=== PATIENT | female | born 1990 | race Caucasian/White ===

== ENCOUNTER 2016-04-11 12:13 | Emergency (ER) | payer OTHER ==
[2016-04-11 12:57] VITALS: BP 104/62
--- NOTE | 2016-04-11 13:23 | UC ---
Ear Complaint HPI - HPI Summary HPI Summary: Nasal congestion with steady L ear pain starting 3-4 days ago. Denies hx of ENT surgery or problems with ears as an adult -- did have AOM repeatedly as a kid, also son is getting tubes this week. - History of Current Complaint Chief Complaint: UCEar Stated Complaint: LEFT EAR PAIN Time Seen by Provider: 04/11/16 12:55 Hx Obtained From: Patient Hx Last Menstrual Period: April 2015 ?: No Onset/Duration: Gradual Onset, Lasting Days Severity Initially: Mild Severity Currently: Mild Aggravating Factors: Cold Associated Signs/Symptoms: Positive: Hearing Loss, URI Symptoms - Allergies/Home Medications Allergies/Adverse Reactions: Allergies Allergy/AdvReac Type Severity Reaction Status Date / Time Sulfa Drugs Allergy Severe Hives Verified 04/11/16 12:51 Home Medications: Home Medications Acetaminophen [Acetaminophen Extra Stren] 1,000 mg PO Q6H PRN 04/11/16 [History Confirmed 04/11/16] Ascorbic Acid TAB* [Vitamin C TAB*] 500 mg PO DAILY 04/11/16 [History Confirmed 04/11/16] Biotin [Biotin Maximum Strength] 10,000 mcg PO DAILY 04/11/16 [History Confirmed 04/11/16] Docosahexaenoic Acid [Dha Roggen 3] 100 mg PO DAILY 04/11/16 [History Confirmed 04/11/16] PMH/Surg Hx/FS Hx/Imm Hx Previously Healthy: Yes - Surgical History Surgical History: Yes Surgery Procedure, Year, and Place: [facility], [address] [place] [address] - Family History Known Family History: Negative: Hypertension - Social History Lives: With Family Alcohol Use: None Substance Use Type: None Smoking Status (MU): Never Smoked Tobacco - Immunization History Most Recent Influenza Vaccination: November 2015 Review of Systems Constitutional: Negative Skin: Negative Eyes: Negative ENT: Ear Ache, Nasal Discharge Respiratory: Negative Cardiovascular: Negative Gastrointestinal: Negative Genitourinary: Negative Motor: Negative Neurovascular: Negative Musculoskeletal: Negative Neurological: Negative Psychological: Negative All Other Systems Reviewed And Are Negative: Yes Physical Exam Triage Information Reviewed: Yes Appearance: Well-Appearing, No Pain Distress, Well-Nourished Vital Signs: Initial Vital Signs Temp 98 F 04/11/16 12:49 Pulse 80 04/11/16 12:49 Resp 16 04/11/16 12:49 BP 104/62 04/11/16 12:49 Pulse Ox 98 04/11/16 12:49 Vital Signs Reviewed: Yes Eye Exam: Normal Eyes: Positive: Conjunctiva Clear ENT: Positive: Pharynx normal, Nasal congestion, TMs normal. Negative: TM bulging, TM dull, TM red, Tonsillar swelling, Tonsillar exudate Dental Exam: Normal Neck exam: Normal Neck: Positive: Supple, Nontender, No Lymphadenopathy Respiratory Exam: Normal Respiratory: Positive: Chest non-tender, Lungs clear, Normal breath sounds, No respiratory distress, No accessory muscle use Cardiovascular Exam: Normal Cardiovascular: Positive: RRR, No Murmur Musculoskeletal Exam: Normal Neurological Exam: Normal Psychological Exam: Normal Skin Exam: Normal Ear Complaint Course/Dx - Differential Dx/Diagnosis Provider Diagnoses: URI. L eustachian tube dysfunction Discharge - Discharge Plan Condition: Stable Disposition: HOME Patient Education Materials: Eustachian Tube Dysfunction (GEN), Upper Respiratory Infection (ED) Additional Instructions: As we discussed, it may take 2-3 weeks for the fluid in your ear to resolve. If you develop steadily worsening pain, fever, or drainage from the ear, please return right away for a recheck.
== END 2016-04-11 13:30 | disposition home or self-care (01) ==
LOC: UCCORT 12:13
DX: J06.9 Acute upper respiratory infection, unspecified (principal); H69.92 Unspecified Eustachian tube disorder, left ear; Z88.2 Allergy status to sulfonamides
CPT/HCPCS: 99211; G0463